=== PATIENT | male | born 2005 ===

== ENCOUNTER 2023-04-23 12:52 | Emergency (ER) | payer OTHER, SELFPAY ==
--- NOTE | ~2023-04-23 | XR_ITS ---
EXAMINATION: XR knee RT 3V DATE: 04/23/2023 13:21 INDICATION: Twisting injury to right knee TECHNIQUE: AP, lateral and sunrise views of the right knee were obtained COMPARISON: None. FINDINGS: Alignment is normal. No fracture. Joint spaces appear normal on nonweightbearing imaging. Small to m oderate-sized right knee joint effusion without layering lipohemarthrosis. Soft tissues are otherwise unremarkable. IMPRESSION: 1. Right knee joint effusion. No osseous abnormality. Reviewed, dictated and finalized at location B.
--- NOTE | 2023-04-23 12:57 | ED.LOWEXIN ---
HPI - Extremity Injury (Lower) General Chief Complaint: Extremity Injury, Lower Stated Complaint: Injured Knee Time Seen by Provider: 04/23/23 12:56 Source: patient Mode of arrival: ambulatory Limitations: no limitations History of Present Illness HPI Narrative: Murali is a 18-year-old male patient presenting to the clinic today with complaints of right knee injury/pain yesterday. He reports he was playing basketball when he twisted his right knee. Reports pain to the lateral knee and feels as though the knee is catching when he is walking. Pain is worse with ambulation. Knee swelling noted when compared to the left knee Related Data Home Medications Medication Instructions Recorded Confirmed No Home Medications 04/23/23 04/23/23 Allergies Allergy/AdvReac Type Severity Reaction Status Date / Time No Known Allergies Allergy Verified 04/23/23 13:32 Review of Systems Review of Systems: Pertinent positives per HPI. Patient denies any fever, chills, rash, headache, visual changes, dizziness, cough, runny nose, sore throat, shortness of breath, chest pain, palpitations, nausea, vomiting, diarrhea, constipation, abdominal pain, or any urinary issues. PMFSH Comments At the time of my signature, I reviewed and agree with the nursing past medical, surgical, social, and family history. There is no relevant family history pertinent to the patient complaint. Exam Narrative: General: Well-developed, well nourished, in no apparent distress Head: Normocephalic, atraumatic. Cardio: Regular rate and rhythm, s1 and s2 normal, no murmur appreciated. Resp: Clear to auscultation bilaterally, no rhonchi, rales, wheezing or rubs. Musculoskeletal: No deformity, tender to palpation over the right LCL, pain with full extension of the right lateral knee, pain is worse with ambulation, feels as though his knee is catching during ambulation, negative anterior and posterior drawer testing, pain with valgus and varus testing without laxity, limited range of motion due to discomfort, muscle strength strong and equal, peripheral pulse strong, no edema, no cyanosis, normal gait and station Course Course Emergency Course: Portions of this record may have been created with voice recognition software. Level of Care: Express Care Visit Vital Signs Vital signs: Vital signs reviewed MDM - Extremity Injury (Lower) MDM Narrative Medical decision making narrative: At the time of visit patient is resting comfortably on the exam table. X-ray of the right knee was performed shows no sign of fracture or malalignment however there is a knee fusion. I suspect patient has a sprained LCL versus internal derangement of the right knee with possible meniscus tear. Recommend wearing a hinged knee brace when he is up ambulating and wearing an Rajeev wrap at nighttime and keeping his knee elevated with ice. Supportive measures were discussed with the patient he voiced understanding discharge instructions agrees to treatment plan. Follow-up with Ortho or PCP in 1 week if symptoms persist to determine need for MRI. Differential Diagnosis Differential diagnosis: Likely acute internal derangement of knee and other (Right knee sprain, meniscus tear) Discharge Plan Discharge Clinical Impression: Acute internal derangement of right knee, Effusion of knee joint right Sprain of lateral collateral ligament of right knee Qualifiers: Encounter type: initial encounter Qualified Code(s): S83.421A - Sprain of lateral collateral ligament of right knee, initial encounter Patient Disposition: Home, Self-Care Condition: Stable Instructions: Antibiotic Form, Knee Sprain (ED), Swollen Knee Joint (ED) Additional Instructions: Rest, ice, elevate, and wear rajeev wrap as directed Wear hinged knee brace when up ambulating Tylenol/motrin for pain as discussed. Gradually bear weight No running or sports until healed. Follow up with your PCP if symptoms per
[2023-04-23 13:10] VITALS: BP 129/69; PULSE 72; RESP 16; TEMP 36.9; O2SAT 99
== END 2023-04-23 13:55 | disposition home or self-care (01) ==
PROVIDERS: Emergency Provider Nurse Practitioner Family
DX: M23.91 Unspecified internal derangement of right knee (principal); M25.461 Effusion, right knee; S83.421A Sprain of lateral collateral ligament of right knee, initial encounter; X50.9XXA Other and unspecified overexertion or strenuous movements or postures, initial encounter; Y93.67 Activity, basketball
CPT/HCPCS: 73562; 99213; G0463

== ENCOUNTER 2023-04-30 10:12 | Emergency (ER) | payer OTHER, SELFPAY ==
[2023-04-30 10:26] VITALS: BP 133/74; RESP 16; TEMP 36.8; O2SAT 100
--- NOTE | 2023-04-30 10:37 | ED.LOWEXIN ---
HPI - Extremity Injury (Lower) General Chief Complaint: Extremity Injury, Lower Stated Complaint: Right Knee Pain Time Seen by Provider: 04/30/23 10:31 Source: patient and RN notes reviewed Mode of arrival: ambulatory Limitations: no limitations History of Present Illness HPI Narrative: Patient presents today complaining of right knee pain. Patient was seen at urgent care was 1 week ago after an injury playing basketball. He was diagnosed with any derangement an x-ray showed an effusion. He was instructed to follow-up with orthopedics for further evaluation. Patient states he has been wearing an Rajeev wrap on his knee, using ice, and taking Tylenol and ibuprofen with some relief. Currently rates his pain 7/10. States that for the past 2-3 days his pain has radiated to his calf. Denies numbness or tingling in the leg or foot. Related Data Home Medications Medication Instructions Recorded Confirmed No Home Medications 04/23/23 04/30/23 Allergies Allergy/AdvReac Type Severity Reaction Status Date / Time No Known Allergies Allergy Verified 04/30/23 10:24 Review of Systems Review of Systems: CONSTITUTIONAL: Denies body aches, fever, chills, or sweats. EYES: Denies visual changes, redness, or discharge. ENT: Denies rhinorrhea, congestion, sore throat, or otalgia. CARDIOVASCULAR: Denies chest pain, palpitations, or edema. RESPIRATORY: Denies cough or dyspnea. GASTROINTESTINAL: Denies abdominal pain, nausea, vomiting, or diarrhea. GENITOURINARY: Denies dysuria or hematuria. SKIN: Denies rash, itching, or wounds. MUSCULOSKELETAL: Denies back pain. + right knee pain NEUROLOGIC: Denies headache, numbness, tingling, or weakness. PSYCH: Denies depression or anxiety. PMFSH Comments At time of signature, I have reviewed and agree with nursing past medical, surgical, social and family history unless otherwise noted. Please see nursing chart for further information. There is no relevant family history pertinent to the presenting complaint Exam Narrative: GENERAL: Well-appearing, well-nourished, and in no acute distress. HEAD: Normocephalic, atraumatic. EYES: EOMI. No redness or drainage. Conjunctivae normal. ENT: Mucous membranes pink and moist. NECK: Normal AROM. CHEST: No respiratory distress. EXTREMITIES: Right knee: Tenderness about the knee with obvious effusion. No bony tenderness. Patient also has posterior knee tenderness, which he is gesturing to when he states he has calf pain. Patient has no tenderness with palpation of the actual calf. No edema to the calf. No erythema to the calf or knee. Distal sensation intact. Capillary refill full range of motion of the knee with increased pain. SKIN: Warm, dry, no rash. Capillary refill normal. Normal skin turgor. NEURO: No focal deficits. Alert and oriented x3. Gait steady. PSYCH: Normal affect. No signs of depression or anxiety. Course Course Level of Care: Express Care Visit Vital Signs Vital signs: Vital Signs Temperature 98.2 F 04/30/23 10:26 Respiratory Rate 16 04/30/23 10:26 Blood Pressure 133/74 04/30/23 10:26 Pulse Oximetry 100 04/30/23 10:26 Temperature 98.2 F 04/30/23 10:26 Respiratory Rate 16 04/30/23 10:26 Blood Pressure 133/74 04/30/23 10:26 Pulse Oximetry 100 04/30/23 10:26 Reviewed. Pt has been instructed to follow up with his PCP regarding his elevated blood pressure today. MDM - Extremity Injury (Lower) MDM Narrative Medical decision making narrative: Instructed patient to follow-up with orthopedics as previously discussed. Rajeev wrap reapplied by tech. No further testing of prescription medications indicated at this time. Anticipatory guidance given. Differential Diagnosis Differential diagnosis: Likely other (Knee effusion, knee pain, meniscus injury, ligamentous injury) Critical Care Time Critical Care Time Critical Care Time: No Discharge Plan Discharge Clinical Impressio
== END 2023-04-30 10:43 | disposition home or self-care (01) ==
PROVIDERS: Emergency Provider Nurse Practitioner
DX: S89.91XD Unspecified injury of right lower leg, subsequent encounter (principal); X58.XXXD Exposure to other specified factors, subsequent encounter
CPT/HCPCS: 99212; G0463